=== PATIENT | male | born 1955 | race Caucasian/White ===

== ENCOUNTER 2018-10-12 19:34 | Inpatient (IN) ==
[2018-10-12] MEDS ORDERED: NS 1,000 ML, NS 1,000 ML IV ONE ×2 (20:14)
[2018-10-12] MEDS ORDERED: TYLENOL PO ONE (20:15)
--- NOTE | 2018-10-12 20:40 | Diag Imaging Result Doc PS360 ---
EXAM: CHEST-2 VIEWS - 10/12/2018 HISTORY: chest pain TECHNIQUE: Chest two views COMPARISON: None. FINDINGS: Heart size is normal. There are apparent COPD changes. There is generalized prominence of bilateral lower lung interstitial markings. There is fullness at the anterior superior left hilum. While this could possibly relate to scarring, mass lesion cannot be excluded. There is no pleural effusion or pneumothorax identified. IMPRESSION: COPD. Generalized prominence of bilateral lower lung interstitial markings. These may relate to interstitial fibrosis or pneumonitis. Fullness at anterior superior left hilum, which could relate to scarring or mass lesion. If this has not been previously evaluated at an outside institution, CT thorax is recommended for further evaluation. Electronically signed by Selvin Mercado 10/12/2018 8:38 PM
[2018-10-12] MEDS ORDERED: NS 1,000 ML ONE ×2 (21:04→21:17)
[2018-10-12 21:16] LABS: BASO# 0.01 X1000 (0.0-0.2); BASO% 0.5 % (0.0-0.8); EOS# 0.02 X1000 (0.0-0.7); EOS% 0.9 % (0.0-10.0); HEMATOCRIT 44.1 % (42.0-52.0); HEMOGLOBIN 15.3 g/dL (14.0-18.0); IMM GRAN# 0.04 X1000 (0.0-0.04); IMM GRAN% 1.8 % (0.0-0.5); LYMPH# 0.35 X1000 (1.2-3.4); LYMPH% 15.9 % (20.5-51.1); MCH 31.2 PG (27-31); MCHC 34.7 g/dL (33-37); MCV 89.8 FL (81-99); MONO# 0.49 X1000 (0.11-0.59); MONO% 22.3 % (1.7-9.3); MPV 12.6 FL (7.4-10.4); NEUT# 1.29 X1000 (1.4-6.5); NEUT% 58.6 % (42.2-75.2); PLT 56 X1000 (130-400); RBC 4.91 XMIL (4.7-6.1); RDW 13.9 % (11.5-14.5)
[2018-10-12 21:17] LABS: INR 1.14; PROTIME 14.7 Seconds (11.0-16.0)
[2018-10-12 21:18] LABS: PTT 33.5 Seconds (22.3-41.8)
[2018-10-12 21:35] LABS: AGAP 15; BUN 21 mg/dL (8-22); CHLORIDE 98 mmol/L (98-107); COSMO 273; GLUCOSE 99 mg/dL (70-104); POTASSIUM 4.5 mmol/L (3.5-5.1); SODIUM 135 mmol/L (136-145); TCO2 22 mmol/L (25-35)
[2018-10-12 21:36] LABS: ALB/GLOB RATIO 1.2; ALBUMIN 3.6 g/dL (3.5-5.0); ALKALINE PHOSPHATASE 78 U/L (32-122); CALCIUM 8.7 mg/dL (8.8-10.2); CREATININE 0.7 mg/dL (0.7-1.2); ESTIMATED GFR > 60; GOT 14 U/L (10-34); GPT 10 U/L (10-44); TOTAL PROTEIN 6.7 g/dL (6.3-8.3)
[2018-10-12 22:45] LABS: URINE SOURCE CLEAN CATCH
[2018-10-12 22:49] LABS: BILIRUBIN URINE NEGATIVE (NEGATIVE); BLOOD URINE NEGATIVE (NEGATIVE); COLOR YELLOW; GLUCOSE URINE NEGATIVE (NEGATIVE); KETONE URINE NEGATIVE (NEGATIVE); LEUKOCYTES URINE NEGATIVE (NEGATIVE); NITRITE URINE NEGATIVE (NEGATIVE); PH URINE 6.5; PROTEIN URINE TRACE mg/dL (NEGATIVE); SP GRAVITY URINE 1.024; TURBIDITY URINE CLEAR (CLEAR); UR EPITHELIAL CELLS <10 /HPF (<10); URINE BACTERIA NEGATIVE /HPF; URINE RBC <10 /HPF (<10); URINE WBC <10 /HPF (<10); UROBILINOGEN URINE NORMAL (NORMAL)
[2018-10-12] MEDS ORDERED: ZOSYN 3.375 GM in NS 50 ML IV ONE (23:07)
[2018-10-12] MEDS ORDERED: VANCOMYCIN 1 GM/NS 1 GM/250 ML IVPB IV ONE (23:07)
--- NOTE | 2018-10-12 23:27 | PROVIDER DOCUMENTATION ---
This chart was entered by Radha Reid Scribe, acting as scribe for Jorden Clark MD. HPI-General Adult - General Chief Complaint: Fever Stated Complaint: LOWER BACK PAIN Time Seen by Provider: 10/12/18 20:05 Source: patient Allergies/Adverse Reactions: Patient Allergies Allergy/AdvReac Type Severity Reaction Status Date / Time No Known Allergies Allergy Verified 10/12/18 21:26 Home Medications: Home Medication List Medication Instructions Recorded Confirmed Last Taken Type Clopidogrel Bisulfate [Plavix] 75 mg PO HS 10/12/18 10/12/18 2 Days Ago History ~10/10/18 Dexamethasone 4 mg PO BID 10/12/18 10/12/18 2 Days Ago History ~10/10/18 Hydrocodone/APAP 10 mg/325 mg 1 ea PO Q6H PRN PRN 10/12/18 10/12/18 10/11/18 History [[place]-10] Magnesium Oxide 400 mg PO BID 10/12/18 10/12/18 2 Days Ago History ~10/10/18 Morphine E.r. [Ms Contin] 60 mg PO Q12HR 10/12/18 10/12/18 10/11/18 History Prochlorperazine Maleate 10 mg PO BID PRN PRN 10/12/18 10/12/18 2 Days Ago History ~10/10/18 - History of Present Illness -Gen Adult Nature of Presenting Problems: pt is a 63 yr old male presenting with 1 day complaint of worsening weakness, shortness of breath and cough, pt also reports fever of 103 at home. pt hx of lung CA and last chemo tx was 6 days ago. Location of Pain/Injury: reports: generalized Pain Radiation: reports: no radiation Quality of Pain: reports: none Onset/Duration: reports: last night Timing: reports: still present, changing over time, getting worse Context/Activities at Onset: reports: rest, other (chemo tx 6 days ago) Associated Symptoms: reports: cough, dizziness, fatigue, fever/chills, muscle aches, shortness of breath, weakness. denies: chest pain, nausea, vomiting Similar Symptoms Previously?: Yes Recently seen or treated by another doctor?: Yes Review of Systems - Adult - REVIEW OF SYSTEMS - ADULT Constitutional: reports: fever (103 tmax), fatique Eyes: reports: no symptoms reported Ears, Nose, Mouth & Throat: reports: no symptoms reported Cardiovascular: denies: chest pain, palpitations, syncope Respiratory: reports: cough, shortness of breath Gastrointestinal: denies: abdominal pain, diarrhea, nausea, vomiting Genitourinary: reports: no symptoms reported Musculoskeletal: reports: muscle aches, muscle weakness Integumentary: reports: no symptoms reported Neurological: denies: dizziness/vertigo, headache/migraines, syncope Psychiatric: reports: no symptoms reported Endocrine: reports: no symptoms reported Hematologic/Lymphatic: reports: no symptoms reported Allergic/Immunologic: reports: no symptoms reported All Other Systems: Reviewed and Negative Past History - Adult - PAST MEDICAL HISTORY-ADULT Review of Records: reports: Old Records Reviewed Major Childhood Illnesses: reports: denies history Cardiovascular: reports: denies history Respiratory: reports: cancer (lung) Gastrointestinal: reports: denies history Obstetrical/Gynecological: reports: denies history Genitourinary: reports: denies history Musculoskeletal: reports: denies history Neurological: reports: denies history Endocrine/Immune: reports: denies history Other Conditions: reports: denies history - IMMUNIZATION STATUS Childhood Immunizations: See Nurse Assessment Flu Vaccine: See Nurse Assessment - FAMILY HISTORY Family History: reviewed, not pertinent - SOCIAL HISTORY Living Situation: family Physical Exam-General - PHYSICAL EXAM-ADULT Initial Vital Signs Reviewed: Yes - CONSTITUTIONAL General Appearance: cachetic - HEAD, EARS, NOSE, MOUTH & THROAT HENMT: normocephalic/atraumatic, moist mucous membranes, normal ENT inspection - NECK Neck: non-tender, full range of motion, supple, normal inspection - RESPIRATORY Respiratory: chest non-tender, rhonchi (diffuse) - CARDIOVASCULAR Cardiovascular: normal peripheral pulses, tachycardia - GASTROINTESTINAL (ABDOMEN) Abdominal Exam: normal bowel sounds, non tender, soft - LYMPHATIC Lymphatic: no adenopathy - MUSCULOSKELETAL Back Exam: normal inspection Extremity: normal range of motion, non-tender, normal inspection - SKIN Integumentary: normal color, normal turgor, warm/dry - NEUROLOGIC Neurologic: grossly normal - PSYCHIATRIC Psych/Mental Status: normal mood/affect Progress - PLAN OF CARE/RESULTS Progress/Plan/Lab Results: Vital Signs - 8 hr 10/12/18 19:57 Temperature 102.5 F H Pulse Rate 140 H Respiratory Rate 20 Blood Pressure 90/60 O2 Sat by Pulse Oximetry 96 Result Diagrams: 10/12/18 20:44 10/12/18 20:44 - REASSESSMENT Reassessment #1 Time Reassessed: 21:05 Status: improving (hr and bp improved with ivf) - EKG 1 Time of EKG reading by physician:: 21:23 EKG Read and Signed by:: Jorden Clark EKG Interpretation (*Must complete 3 of following elements*): Abnormal (poss LAE, septal infarct-age undetermined) Rate: 102 Rhythm: sinus tachycardia [place]: right (superior axis deviation) - XRAY 1 XRAY Study: Chest Impression: Abnormal ( EXAM: CHEST-2 VIEWS - 10/12/2018 HISTORY: chest pain TECHNIQUE: Chest two views COMPARISON: None. FINDINGS: Heart size is normal. There are apparent COPD changes. There is generalized prominence of bilateral lower lung interstitial markings. There is fullness at the anterior superior left hilum. While this could possibly relate to scarring, mass lesion cannot be excluded. There is no pleural effusion or pneumothorax identified. IMPRESSION: COPD. Generalized prominence of bilateral lower lung interstitial markings. These may relate to interstitial fibrosis or pneumonitis. Fullness at anterior superior left hilum, which could relate to scarring or mass lesion. If this has not been previously evaluated at an outside institution, CT thorax is recommended for further evaluation. Electronically signed by Selvin Mercado 10/12/2018 8:38 PM 10/12/182037 Interpreting Physician: Selvin Mercado MD Dictated Date/Time: 10/12/182030 cc: Jorden Clark MD; None,PCP) Comparison with other Films: no prior study - CONSULTS/PCP/HOSPITALIST Notification #1 *Consult/PCP/Hospitalist*: akinsoto Time Discussed: 23:15 Reason/Comments: discussed paln of care for pt admit Consult Disposition: Admit Departure - Departure Date of Disposition Decision: 10/12/18 Time of Disposition Decision: 23:26 DIAGNOSIS: Fever and neutropenia Disposition: ADMITTED INPATIENT 09 Certified Medical Emergency: Emergent Condition: Serious Referrals and Follow-Ups: None,PCP [Primary Care Provider] - - Critical Care Note This patient required my direct & personal management of CC.: No Attestation - Physician/ JESSICA Attestation The physician spent face to face time with patient:: Yes Advanced Practice Provider documentation review:: Supervising physician onsite and consulted in the evaluation and care of this patient. The physician did have a face to face encounter with the patient. This chart was documented by the indicated scribe, (Radha Reid Scribe) and accurately reflects the services I performed and decisions made by me, Jorden Clark MD, as attested by the provider's signature.
[2018-10-13] MEDS ORDERED: COMPAZINE PO PRN (01:39)
[2018-10-13] MEDS ORDERED: TYLENOL PO PRN (01:39)
[2018-10-13] MEDS: MAXIPIME 2 GM in NS 100 ML IV SCH ×2 (02:24→14:12)
[2018-10-13] MEDS: NS 1,000 ML IV SCH ×2 (02:24→09:17)
[2018-10-13] MEDS: DECADRON PO SCH ×3 (02:24→20:32)
[2018-10-13] MEDS: LEVAQUIN 500 MG/D5W 500 MG/100 ML IVPB IV SCH (02:24)
--- NOTE | 2018-10-13 02:52 | HISTORY AND PHYSICAL ---
PRIMARY CARE PHYSICIAN: Dr. Becky Hernandez. REASON FOR ADMISSION: Fever, chills, weakness today. Mr Alan Moise is a 61-year-old man who has a history of lung cancer undergoing active chemotherapy, and has recently completed a 10 course of radiation therapy about a month ago. His last chemotherapy was about a week ago, and gets it on Wednesdays, by the way. He reports that he has been feeling weak for the last couple days, but the weakness is more profound today. Had a an episode of chills while at home, and temperature was measured around 103. He, also, complained about coughing spells productive of white sputum with some shortness of breath. He denies any chest pain or any anginal- type symptoms. He denies any GI or complaints. He denies any focal neurological complaints. No new rash or arthralgias. REVIEW OF SYSTEMS: Twelve system review was done, positive findings per HPI. ALLERGIES: None. MEDICATIONS: He takes Plavix 75 mg daily, Compazine 10 mg b.i.d. p.r.n., [place] 10 q.6 hours p.r.n., dexamethasone 4 mg b.i.d., MS Contin 60 mg q.12 hours, magnesium oxide 400 mg b.i.d. SURGICAL HISTORY: He has had a CABG, right wrist surgery, a penile implant, possible right iliac artery stenting. SOCIAL HISTORY: Smokes about 2 cigars a day. No alcohol or illicit drug use. Lives with his . FAMILY HISTORY: Mother of end-stage kidney disease. Brother had lung cancer. Father had Alzheimer disease. LABORATORY WORK: CT thorax ordered by me showed a possible right upper lobe mass or area of consolidation, and right posterior basilar areas of infiltrate. White count 2000, hemoglobin and hematocrit 15 and 44, platelets 56,000, with a normal differential. Sodium is 135. BUN is 21, creatinine 0.7. Calcium 8.7. PTT is normal. Urinalysis shows trace protein. PHYSICAL EXAMINATION: VITAL SIGNS: Blood pressure is 99/58, heart rate is 96, respirations 24, temperature is 99.9 degrees. Initially, his heart rate was 140, and he received a L of fluid bolus, which has helped considerably. His O2 sats 94% on 2 L. GENERAL: He is a thin, chronically ill man, in no acute distress. A and O x3. Normal mood and affect. HEENT: Head is normocephalic, atraumatic. Eyes: LUIS EDUARDO, EOMI. He is anicteric, not pale. ENT and oropharynx exam is grossly normal. No central cyanosis. NECK: Supple. No JVD or carotid bruit. No thyromegaly. No cervical or supraclavicular lymphadenopathy appreciated. CHEST: Decreased entry in both lung salmon with scattered expiratory wheezes. A few bibasilar crepitations. CARDIOVASCULAR: First and 2nd sounds heard. No gallops, murmurs, rubs. Rhythm is regular. ABDOMEN: Full, soft, with no focal areas of tenderness. No mass or organomegaly. Bowel sounds are normal. RECTAL: Deferred at this time. EXTREMITIES: The patient has surprisingly good distal pulse volumes which are regular, symmetrical. No edema but he has grade 3 clubbing. No tremors. NEUROLOGICAL: Grossly intact. No sensory motor deficits. SKIN: Intact with no breakdown lesions or erythema. MUSCULOSKELETAL: Grossly normal. ASSESSMENT: 1. Febrile neutropenia. 2. Probable pneumonia, early onset pneumonia. 3. Peripheral artery disease. 4. Lung cancer. 5. Tobacco use. 6. Dehydration. PLAN: To start patient on gram-negative coverage and atypical pathogen coverage with Maxipime and Levaquin for now. Consult Dr. Becky Hernandez to see patient. We will continue to hydrate patient accordingly and treat symptomatically regarding pain, cough, and breathing issues as they arise. Will defer to Dr. Becky Hernandez if the role of G-CSF has a place here, although I personally doubt it. DVT prophylaxis will be instituted. cc: MD Becky Martinez MD
[2018-10-13] MEDS: DUONEB (A & A) INH SCH ×4 (03:53→21:39)
[2018-10-13] MEDS: MS CONTIN PO SCH ×3 (04:32→20:32)
--- NOTE | 2018-10-13 08:01 | Diag Imaging Result Doc PS360 ---
EXAM: CT THORAX W/O CONTRAST INDICATION: Fever, cough, Lung CA receiving chemo TECHNIQUE: This exam was performed using automated exposure control, adjustment of mA or kV according to patient size, and/or use of iterative reconstruction technique. COMPARISON: None. FINDINGS: There is bilateral moderate pulmonary emphysema. There is an irregular mass in the anterior left upper lobe that extends to the left hilum consistent with the given history of lung carcinoma. It measures approximately 5.0 x 4.6 cm axially. The left hilum is prominent suggesting some degree of hilar lymphadenopathy. There are multiple other smaller nodules seen bilaterally that are suspicious for metastatic lesions. For reference, there is a nodule in the anterior left lower lobe on image 86 of series 3 measuring up to 9.2 mm. There is a nodule abutting the pleura in the right lower lobe on image 85 of series 3 that measures up to 9.2 mm. There is patchy ill-defined consolidation involving the right lower lobe throughout and, to a lesser degree, the left lower lobe at the base. There is also probably trace consolidation at the posterior inferior right upper lobe. This is suggestive of developing pneumonia. There is no pleural fluid collection and no pneumothorax. There is no cardiomegaly. There are sclerotic metastases involving the scapula on the right, the posterior aspect of the eighth rib on the right, and the fourth and seventh thoracic vertebral bodies. Limited views of the upper abdomen are grossly unremarkable. IMPRESSION: 1.Dominant mass in the left upper lobe extending to the left suprahilar region with associated left hilar lymphadenopathy consistent with the given history of lung carcinoma. 2.Several other smaller nodules throughout both lungs that are suspicious for metastatic lesions. 3.Ill-defined patchy airspace consolidation bilaterally but predominantly in the right lower lobe suspicious for developing pneumonia. 4.Skeletal metastases as described. Electronically signed by Naif Samano 10/13/2018 7:58 AM
--- NOTE | 2018-10-13 08:55 | EKG Report ---
Test Performed on : 10/12/2018 9:23:58 PM Test Reason : ED. NO EKG ORDER FOR MUSE Blood Pressure : / mmHG Vent. Rate : 102 BPM Atrial Rate : 102 BPM P-R Int : 126 ms QRS Dur : 068 ms QT Int : 334 ms P-R-T Axes : 074 191 075 degrees QTc Int : 435 ms Sinus tachycardia. Possible Left atrial enlargement Right superior axis deviation Septal infarct , age undetermined Abnormal ECG No previous ECGs available Unconfirmed Result
[2018-10-13] MEDS: MAG-OX PO SCH ×2 (08:57→20:34)
--- NOTE | 2018-10-13 16:18 | PROGRESS NOTE ---
DATE: 10/13/2018 SUBJECTIVE: Mr. Moise was admitted early this morning, patient of Dr. Becky Hernandez. He presented with fever, chills, weakness today. He is a 61-year-old male with history of lung cancer undergoing active chemotherapy, recently completed a 10 course of radiation therapy about a month ago. His last chemotherapy was about a week ago. He gets his chemotherapy on Thursday. Reports he has been feeling weak for the last couple days, but the weakness more profound today. Had episode of chills while home; temperature was around 103. Also complains of coughing spells productive of white sputum, some shortness of breath. Denied any chest pain or any anginal type symptoms. SURGICAL HISTORY: He has had a CABG, right wrist surgery, penile implant, possible right iliac artery stenting. Mr. Moise was admitted for febrile neutropenia, probable early onset pneumonia, history of peripheral artery disease, lung cancer, tobacco use and dehydration. PHYSICAL EXAMINATION: General: On exam today, he says he is feeling a little bit better. Vital Signs: Temperature is 98.8 degrees. He did have a temperature of 102 degrees yesterday, 102.5, pulse 88, respirations 18, blood pressure 105/56. Eyes: Pupils are equal and round. Lungs: Clear in all lung salmon. Cardiovascular exam: Regular rhythm and rate without murmur or S3. Abdomen: Soft. Skin: Warm and dry. LABS: Hematocrit is 44, white blood cell count is 2200, platelet count is 56,000. Sodium 135, potassium 4.5, chloride 98. BUN is 21, creatinine 0.7. AST is 14, ALT is 10. Pro time is 14.7, PTT is 33. Urinalysis unremarkable. X-RAYS: 1. CT scan showed dominant mass in the left upper lobe extending to the left suprahilar region associated with left hilar adenopathy consistent with history of lung cancer. 2. Several smaller nodules throughout both lungs are suspicious for metastatic lesions. 3. Ill-defined opacity airspace consolidation bilaterally, predominantly in the right lower lobe, suspicious for developing pneumonia. 4. Skeletal metastasis as described. 5. Chest x-ray: Showed COPD, generalized prominence of bilateral lower lungs, interstitial markings and interstitial fibrosis and pneumonitis. She has fullness in the anterior superior left hilum, which could relate to scarring or mass lesion. The patient appears more comfortable right now. Getting hydrocodone 10 mg q. 6 hours p.r.n., levofloxacin 500 mg IV q. 24 hours, cefepime 2 g IV q. 12 hours, vancomycin 1 g was given in the emergency room. cc: Jose Maria Alejo MD
[2018-10-13] MEDS: NORCO-10 PO PRN (17:23)
--- NOTE | 2018-10-13 18:46 | HEMO/ONC CONSULTATION ---
DATE: 10/13/2018 REQUESTING PHYSICIAN: Hospitalist service. REASON FOR CONSULTATION: Metastatic lung cancer, patient known. HISTORY OF PRESENT ILLNESS: Mr. Moise is known to us. He is a 63-year-old male, who we are currently treating for metastatic lung adenocarcinoma. He recently had progression of disease while on Keytruda. He is now status post cycle 1 of Taxotere and Cyramza on 10/06/2018. He actually contacted our office last night complaining of a fever of 103. He was instructed to go to the emergency department. He was evaluated there and found to be neutropenic and also have pneumonia. He has now been admitted for further evaluation and treatment. PAST MEDICAL HISTORY: 1. Chronic back and neck pain. 2. Peripheral vascular disease. 3. Neuropathy. 4. Metastatic lung cancer, currently receiving Cyramza and Taxotere, status post cycle 1 on 10/06/2018. PAST SURGICAL HISTORY: 1. Right arterial stent placement in 2018. 2. Penile implant in 2015. SOCIAL HISTORY: Patient continues to be an everyday smoker. He does not use any alcohol or illicit drugs. FAMILY HISTORY: Positive for kidney disease, Alzheimer's, but no malignancy. REVIEW OF SYSTEMS: As per HPI. All of the else is either negative or noncontributory. PHYSICAL EXAMINATION: Vital Signs: Temperature 98.7 degrees, heart rate 99, respirations 18, blood pressure 109/63, O2 saturation 97% on 2 L nasal cannula. General: This is an - English male, sitting in his hospital bed. He is in no acute distress. There is no one at bedside. Head: Normocephalic, atraumatic. Eyes: Pupils equal, round, and reactive. Ears/nose/throat/neck/mouth: Oral mucosa appears to be normal. Gross auditory acuity is intact. Cardiovascular: S1, S2 heard. No murmurs, gallops, or rubs appreciated. Respiratory: Coarse breath sounds with normal respiratory effort. Some scant wheezing. Gastrointestinal: Abdomen is soft. Positive bowel sounds. Musculoskeletal: No obvious bony abnormalities. Extremities: Some trace pedal edema. Neurologic: Patient is alert and oriented. No focal motor deficits. LABORATORY AND STUDIES: CT of the chest shows ill-defined, patchy airspace consolidation bilaterally, prominent in the right lower lobe, suspicious for developing pneumonia. White blood cells are 2.20, hemoglobin 15.3, platelet count 56,000, absolute neutrophil count is 1.29. ASSESSMENT AND PLAN: 1. Metastatic lung cancer. Patient is status post his first cycle of Taxotere and Cyramza last week. He is at his low point. He may actually even domonique'd sooner than the 7-day nunu. He did receive Neulasta after his last treatment. No treatment while he is in the hospital. We will re-evaluate the patient when he comes back in after he has been discharged. We will discuss resuming treatment and any necessary adjustments to his treatment that may be needed. 2. Neutropenia, mild. He has had fever. His ANC is above 1000. No need for Neupogen at this time. Again, he did receive Neulasta. We believe that his counts are going to improve without intervention with growth factor. 3. Pneumonia. Continue IV antibiotics per the primary team. Thank you for consulting us on Mr. Moise. We will continue to follow along and adjust our treatment plan per his hospital course. Dictated by RAE Duran for Becky Hernandez MD cc: Becky Hernandez MD I have seen and examined the patient and the above note reflects my history, exam, assessment and plan. Becky Hernandez MD [facility]OSPITALRachel
[2018-10-13] MEDS: PLAVIX PO SCH (20:32)
[2018-10-14] MEDS: LEVAQUIN 500 MG/D5W 500 MG/100 ML IVPB IV SCH (00:50)
[2018-10-14] MEDS: MAXIPIME 2 GM in NS 100 ML IV SCH ×2 (00:57→14:23)
[2018-10-14] MEDS: DUONEB (A & A) INH SCH ×4 (03:28→22:56)
[2018-10-14 07:56] LABS: BASO# 0.03 X1000 (0.0-0.2); BASO% 0.2 % (0.0-0.8); EOS# 0.03 X1000 (0.0-0.7); EOS% 0.2 % (0.0-10.0); HEMATOCRIT 36.7 % (42.0-52.0); HEMOGLOBIN 12.4 g/dL (14.0-18.0); IMM GRAN# 0.35 X1000 (0.0-0.04); IMM GRAN% 2.2 % (0.0-0.5); LYMPH# 0.26 X1000 (1.2-3.4); LYMPH% 1.7 % (20.5-51.1); MCH 30.9 PG (27-31); MCHC 33.8 g/dL (33-37); MCV 91.5 FL (81-99); MONO# 1.16 X1000 (0.11-0.59); MONO% 7.4 % (1.7-9.3); MPV 13.1 FL (7.4-10.4); NEUT# 13.78 X1000 (1.4-6.5); NEUT% 88.3 % (42.2-75.2); PLT 63 X1000 (130-400); RBC 4.01 XMIL (4.7-6.1); RDW 14.3 % (11.5-14.5); WBC 15.61 X1000 (4.8-10.8)
[2018-10-14 08:04] LABS: AGAP 9; BUN 8 mg/dL (8-22); CALCIUM 7.8 mg/dL (8.8-10.2); CHLORIDE 105 mmol/L (98-107); COSMO 274; CREATININE 0.6 mg/dL (0.7-1.2); ESTIMATED GFR > 60; GLUCOSE 124 mg/dL (70-104); POTASSIUM 4.7 mmol/L (3.5-5.1); SODIUM 137 mmol/L (136-145); TCO2 23 mmol/L (25-35)
[2018-10-14] MEDS: MAG-OX PO SCH ×2 (08:04→21:29)
[2018-10-14] MEDS: DECADRON PO SCH ×2 (08:05→21:27)
[2018-10-14] MEDS: NORCO-10 PO PRN ×2 (08:05→14:27)
[2018-10-14] MEDS: MS CONTIN PO SCH ×2 (08:12→21:27)
[2018-10-14] MEDS: TUMS PO SCH (16:41)
--- NOTE | 2018-10-14 18:29 | PROGRESS NOTE ---
DATE: 10/14/2018 SUBJECTIVE: This patient states that he is feeling better compared with admission. He has been having tachycardia on and off. He had a temperature of 102.5 degrees upon admission, that was back on 10/12/2018. He is breathing better. He has not been using oxygen at home, but he is on 2 L here. He has been tolerating p.o. No nausea. No vomiting. He has a history off metastatic lung cancer and he has been getting treatment for that as an outpatient. He came in with mild neutropenia, but he did not need Neupogen at this time. WBC actually improved from 2.2 to 15.6. OBJECTIVE: Vital Signs: Temperature 99.1 degrees, pulse 106, respiratory rate 18, blood pressure 122/75, oxygen saturation 100% on 2 L of nasal cannula. HEENT: Head normocephalic. No trauma. PERRLA. Neck: Supple. No JVD. Central trachea. Chest: Rhonchi bilaterally at the bases, mostly on the right side. Some crepitus also at the level of the right and left upper lung. No wheezing. Abdomen: Soft, nontender, nondistended. No hepatosplenomegaly. Extremities: No edema. No clubbing. No cyanosis. Neurological: The patient is alert. He is oriented x3. No focal deficits. LABORATORY: WBC 15.6, hemoglobin 12.4, hematocrit 36.7, platelets 63,000. Sodium 137, potassium 4.7, chloride 105, bicarbonate 23, BUN 8, creatinine 0.6, glucose 124, calcium 7.8, magnesium 2.1. ASSESSMENT AND PLAN: 1. Pneumonia, bilaterally, mostly on the right at the bases. Continue with antibiotics. He seems to be getting better. No more fever. Continue with the same management. Hopefully we can discharge this patient in the next 24 to 48 hours. Blood culture has been negative so far. I will ask for a sputum culture. 2. Metastatic lung cancer. Followed closely by Hematology/Oncology Department. We will continue to monitor. 3. Mild neutropenia, resolved. 4. Thrombocytopenia. We will monitor for now. I will ask for a new CBC in the morning. Platelet count improved from 56,000 to 63,000. 5. History of chronic back pain and neck pain. Continue pain medication. 6. Peripheral vascular disease. Aware. 7. Peripheral neuropathy. Continue with same management. We will keep an eye on this. 8. Sepsis due to pneumonia. Upon admission, this patient had a fever of 102.5 and also he was tachycardic and tachypneic, meeting criteria for sepsis, which is getting better. cc: Wayne Segovia MD
[2018-10-14] MEDS: PLAVIX PO SCH (21:29)
[2018-10-14] MEDS: BIDEX PO SCH (21:58)
[2018-10-15] MEDS: LEVAQUIN 500 MG/D5W 500 MG/100 ML IVPB IV SCH (01:08)
[2018-10-15] MEDS: MAXIPIME 2 GM in NS 100 ML IV SCH (01:08)
[2018-10-15] MEDS: DUONEB (A & A) INH SCH ×2 (03:07→11:10)
[2018-10-15 06:52] LABS: BASO# 0.05 X1000 (0.0-0.2); BASO% 0.2 % (0.0-0.8); HEMOGLOBIN 12.5 g/dL (14.0-18.0); IMM GRAN# 0.93 X1000 (0.0-0.04); IMM GRAN% 4.5 % (0.0-0.5); LYMPH# 0.36 X1000 (1.2-3.4); LYMPH% 1.7 % (20.5-51.1); MCH 30.9 PG (27-31); MCHC 33.8 g/dL (33-37); MCV 91.6 FL (81-99); MONO# 1.42 X1000 (0.11-0.59); MONO% 6.8 % (1.7-9.3); MPV 12.1 FL (7.4-10.4); NEUT# 17.97 X1000 (1.4-6.5); NEUT% 86.8 % (42.2-75.2); PLT 56 X1000 (130-400); RBC 4.04 XMIL (4.7-6.1); RDW 14.3 % (11.5-14.5); WBC 20.73 X1000 (4.8-10.8)
[2018-10-15 07:06] LABS: AGAP 7; ALB/GLOB RATIO 1.1; ALBUMIN 3.1 g/dL (3.5-5.0); ALKALINE PHOSPHATASE 100 U/L (32-122); BUN 7 mg/dL (8-22); CHLORIDE 101 mmol/L (98-107); COSMO 269; CREATININE 0.6 mg/dL (0.7-1.2); ESTIMATED GFR > 60; GLUCOSE 116 mg/dL (70-104); GOT 14 U/L (10-34); GPT 8 U/L (10-44); POTASSIUM 4.6 mmol/L (3.5-5.1); SODIUM 135 mmol/L (136-145); TCO2 27 mmol/L (25-35); TOTAL BILIRUBIN 0.15 mg/dL (0.20-1.00); TOTAL PROTEIN 5.8 g/dL (6.3-8.3)
[2018-10-15 07:33] VITALS: BP 120/71
[2018-10-15 07:53] LABS: BANDS 12 % (0-1); MONO 1 % (1-9); SEGS 85 % (42-75)
[2018-10-15 07:54] LABS: LARGE PLATELETS 1+
--- NOTE | 2018-10-15 08:31 | Diag Imaging Result Doc PS360 ---
CHEST-2 VIEWS - 10/15/2018 INDICATION: hypoxia COMPARISON: 10/12/2018 FINDINGS: There is probably a trace right pleural effusion. Stable COPD. Stable background interstitial markings in the lung bases that are nonspecific, suggesting mild interstitial edema or faint pneumonia. Stable nodular infiltrate at the left upper lobe adjacent to the left hilum. IMPRESSION: Little change from prior. Electronically signed by Nolan Silver 10/15/2018 8:29 AM
--- NOTE | 2018-10-15 10:21 | INFECTIOUS DISEASE CONSULT REP ---
DATE: 10/15/2018 CONCLUSION: The patient is admitted to the hospital with what appears to be a pneumonia. He has a leukocytosis. I think a part of leukocytosis, if not most all of it, is related to the fact that the patient is taking Decadron. The patient has a sore mouth and he has some white patches in his mouth, which I think could be due to oral candidiasis. RECOMMENDATIONS: I have discussed the patient's case with Dr. Young. We both feel he can be discharged home. I have printed up through the computer a prescription for Levaquin 500 mg p.o. daily for a week and have requested that the patient come to my office in 1 week for an appointment. At that time, the patient will be examined and his CBC and chest x-ray will be repeated. I am going to start the patient on Mycostatin swish and swallow and have a prescription for him for either Mycostatin swish and swallow or clotrimazole troches. DISCUSSION: The patient approximately 4 days prior to his admission in the hospital had fever, shortness of breath, decrease in his memory and weakness to the point that he was not able to walk well. The patient in the past few weeks has lost weight down to 17 pounds. His CBC shows a white count of 20,730, hemoglobin 12.5, and platelet count 56,000. Creatinine is 0.6. GFR is greater than 60. Liver function studies are normal. Urinalysis showed no white cells or bacteria. Chest x-ray shows a stable left upper lobe nodular mass. Also there is some bibasilar interstitial edema/pneumonia. CT scan of the chest shows a left upper lobe mass and small nodules, most likely representing metastatic lung cancer. There also is a bilateral patchy airspace consolidation. PAST MEDICAL HISTORY/REVIEW OF SYSTEMS: Eyes/Ears: Can hear and see okay. Neck: No stiffness. Respiratory: See present illness. Cardiac: No chest pain or palpitations. GI: No nausea, vomiting, or diarrhea. : No dysuria or flank pain. Neurologic: See present illness. The patient has not had any seizures. PREVIOUS HOSPITALIZATIONS AND OPERATIONS: He has had surgery on his wrist and his knee. He has had a penile implant and placement of a femoral artery stent. MEDICAL DISEASES: Lung cancer which is metastatic. The patient is on chemotherapy. The patient also has peripheral vascular disease and in his back he has degenerative joint disease. INFECTIOUS DISEASE HISTORY: Positive for pneumonia, negative for urinary tract infection. FAMILY HISTORY: Positive for hypertension and Alzheimer's disease. SOCIAL HISTORY[place] . He does not have any pets at home. He smokes cigarettes. He does not drink alcoholic beverages or abuse drugs. He is a [employer] dedicated truck driver. ALLERGIES: He has no known allergies. MEDICATIONS TAKEN AT HOME: Plavix, dexamethasone, hydrocodone, Levaquin, magnesium oxide, morphine, and prochlorperazine. PHYSICAL EXAMINATION: Vital Signs: Temperature is 98.4 degrees, pulse 96, respirations 18, blood pressure 120/71. The patient is 5 feet 11 inches tall and weighs 131 pounds. General: This is a chronically ill and malnourished-appearing middle-aged male. He is in no acute distress. HEENT: He can hear my spoken words and see near objects. He does have some white patches on his tongue. Lungs: The patient has rales on the right side. Cardiovascular: Heart rate is regular. Abdomen: Soft and nontender. Neck: No meningismus. Neurologic: The patient is alert. He is able to ambulate. There is no tremor. His sensation is intact to touch. His memory as regarding his medical history is intact. Integument: No rash noted. Thank you for the consult. cc: Ildefonso Smith MD
[2018-10-15] MEDS: DECADRON PO SCH (10:34)
[2018-10-15] MEDS: TUMS PO SCH (10:34)
[2018-10-15] MEDS: BIDEX PO SCH (10:34)
[2018-10-15] MEDS: MS CONTIN PO SCH (10:35)
[2018-10-15] MEDS: MAG-OX PO SCH (10:37)
[2018-10-15] MEDS ORDERED: MYCELEX TROCHE PO SCH (12:00)
--- NOTE | 2018-10-15 21:43 | DISCHARGE SUMMARY ---
ADMISSION DATE: 10/12/2018 DISCHARGE DATE: 10/15/2018 DISCHARGE DIAGNOSES: 1. Bilateral pneumonia, mostly at the bases, especially right side. 2. Metastatic lung cancer. 3. Mild neutropenia, resolved. 4. Thrombocytopenia. 5. History of chronic back pain and neck pain. 6. Peripheral vascular disease. 7. Peripheral neuropathy. 8. Sepsis due to pneumonia. PROCEDURES PERFORMED: 1. Chest x-ray, dated 10/12/2018, impression: COPD, generalized prominence of bilateral lower lung interstitial markings. These may relate to interstitial fibrosis or pneumonitis, fullness at anterior-superior left hilum which could be related to scarring or mass lesion. If this has not been previously evaluated at an outside institution, CT thorax is recommended for further evaluation. 2. Chest x-ray, dated 10/15/2018, impression: Little change from prior. 3. CT scan of the chest, dated 10/12/2018, impression: Dominant mass in the left upper lobe extending to the left suprahilar region, with associated left hilar lymphadenopathy consistent with the given history of lung carcinoma. 4. Severe other smaller nodules throughout both lungs that are suspicious for metastatic lesions. 5. Ill-defined patchy airspace consolidation bilaterally, but predominantly in the right lower lobe, suspicious for developing pneumonia. 6. Skeletal metastasis as described. HOSPITAL COURSE: 61-year-old male with past medical history of metastatic lung cancer, undergoing active chemotherapy, and has recently completed a 10 day course of radiation therapy about a month ago. He reported and was admitted on 10/12/2018 due to weakness for the last couple days, but more profound the day of admission. History of chills and he had a temperature that was measured around 103. He also complained about coughing spells, productive of white sputum, with some shortness of breath. He denied any chest pain or anginal type symptoms. He denies any or GI complaints. He denies any focal neurological complaints. No new rash or arthralgias. CT scan showed a mass in the left upper lobe extending to the left suprahilar region with associated left hilar lymphadenopathy, consistent with the given history of lung carcinoma. Several other smaller nodules throughout both lungs that are suspicious for metastatic lesions. Ill-defined patchy airspace consolidation bilaterally, but predominantly in the right lower lobe suspicious for developing pneumonia and skeletal metastasis. He was placed immediately on antibiotics and also supportive breathing treatment. Hematology was consulted and they also evaluated this patient. He was starting to feel better on a daily basis. Infectious Disease Department evaluated this patient and they felt that this patient can be discharged home and follow up with them in 1 week. He will go home with levofloxacin through his mouth. Also, he developed some oral thrush and we will treat that. At the moment of discharge, the patient was in stable medical condition, tolerating p.o., and ambulating. OBJECTIVE: Vital Signs: Temperature 98.4 degrees, pulse 95, respiratory rate 16, blood pressure 120/71, oxygen saturation 99 on room air. HEENT: Head normocephalic. No trauma. PERRLA. Neck: Supple. No JVD. No masses. Central trachea. Chest: Rhonchi, mostly at the bases, especially right side, with some crepitus. No wheezing. Abdomen: Soft, nontender, nondistended. No hepatosplenomegaly. Extremities: No edema, no clubbing, no cyanosis. Neurological: The patient is alert. He is oriented x3. No focal deficits. LABORATORY: WBC 20.7, hemoglobin 12.5, hematocrit 37, platelets 56,000. Sodium 135, potassium 4.6, chloride 101, bicarbonate 27, BUN 7, creatinine 0.6, glucose 116, calcium 8, albumin 3.1. DISCHARGE MEDICATIONS: 1. Levofloxacin 500 mg p.o. daily for 7 days. 2. Magnesium oxide 400 mg p.o. b.i.d. 3. Morphine ER 60 mg p.o. q.12 hours. 4. Prochlorperazine 10 mg p.o. b.i.d. as needed. 5. Calcium carbonate 500 mg p.o. daily as needed. 6. Plavix 75 mg p.o. at bedtime. 7. Mycelex [place] 10 mg p.o. 5 times a day. 8. Dexamethasone 4 mg p.o. b.i.d. 9. Guaifenesin 400 mg p.o. t.i.d. 10. [place] 10 one tablet p.o. q.6 hours as needed. TIME DISCHARGING THIS PATIENT: 35 minutes. cc: Wayne Segovia MD
== END 2018-10-15 13:18 | disposition home or self-care (01) | DRG 871 ==
LOC: ED 19:34 → SUATTDRO 10-13 01:18 → 3N 10-13 01:18
PROVIDERS: ATTEND Internal Medicine